=== PATIENT | female | born 1960 | race Caucasian/White ===

== ENCOUNTER 2023-10-19 19:18 | Emergency (ER) | payer OTHER ==
[2023-10-19 20:26] LABS: Absolute Lymphocytes (CBC) 1.7 K/uL (0.7-4.9); Absolute Monocytes 1.3 K/uL (0.1-1.3); Absolute Neutrophil 9.7 K/uL (1.8-8.0); Basophils % 0.4 % (0-1.3); Eosinophils % 0.1 % (0-4.4); Hematocrit 42.5 % (36.0-45.0); Hemoglobin 14.5 g/dL (12.0-15.0); Lymphocytes % 13.4 % (15.3-44.8); MCH 27.5 pg (27.0-35.0); MPV 7.7 fL (7.6-11.3); Monocytes % 9.9 % (3.3-12.3); Neutrophils % 76.2 % (41.7-73.7); Platelets 191 thou/uL (152-406); RBC Red Blood Cell Count 5.25 M/uL (3.86-4.86); Red Cell Distribution Width 14.9 % (12.1-15.2)
[2023-10-19 20:28] LABS: Specific Gravity 1.005 (1.005-1.030); Sqamous Epithelial <5 /HPF (None Seen); Urine Bacteria <20 /HPF (<20); Urine Bilirubin NEGATIVE (Negative); Urine Blood Trace (Negative); Urine Clarity Turbid (Clear); Urine Color Colorless (Yellow); Urine Culture Reflex Order REFLEXED; Urine Glucose NEGATIVE (Negative); Urine Ketones NEGATIVE (Negative); Urine Microscopic Reflex YN ORDER UMIC; Urine Mucus Slight /HPF (None Seen); Urine Nitrite NEGATIVE (Negative); Urine Protein NEGATIVE (Negative); Urine RBC <5 /HPF (None Seen); Urine Urobilinogen Normal (Normal); Urine WBC 20-50 /HPF (<5)
[2023-10-19] MEDS ORDERED: KETOROLAC 30 MG/ML INJ ONE (20:29)
[2023-10-19] MEDS ORDERED: NA CHLORIDE 0.9% 1,000 ML ONE (20:29)
[2023-10-19 20:41] LABS: Albumin 3.8 g/dL (3.4-5.0); Albumin/Globulin Ratio 0.9 (1.1-1.8); Anion Gap 10.6 mEq/L (5.0-15.0); Bilirubin Total 1.6 mg/dL (0.2-1.0); Globulin 4.3 g/dL (2.3-3.5); Potassium 3.6 mEq/L (3.5-5.1); Protein, Total 8.1 g/dL (6.4-8.2)
--- NOTE | 2023-10-19 21:54 | RAD REPORT ---
EXAM DESCRIPTION: CTAbdomen Pelvis W Contrast - 10/19/2023 9:14 pm CLINICAL HISTORY: Abdominal pain. ABD PAIN COMPARISON: <Comparisons> TECHNIQUE: Biphasic CT imaging of the abdomen and pelvis was performed with 100 ml non-ionic IV cont rast. All CT scans are performed using dose optimization technique as appropriate and may include automated exposure control or mA/KV adjustment according to patient size. FINDINGS: The lung bases are clear.Cholecystectomy clips. The liver, spleen, pancreas, adrenal glands and kidneys are within normal limits. No bowel obstruction, free air, free fluid or abscess. There is an 8 cm area of sigmoid colon with mo derate surrounding inflammation compatible with acute diverticulitis. No abscess is seen. The appendi x is normal. No evidence of significant lymphadenopathy. No suspicious bony findings. IMPRESSION: Moderate sigmoid colon inflammation compatible with acute diverticulitis. No abscess see n.
[2023-10-19] MEDS ORDERED: CEFTRIAXONE 1000 MG/VIAL ONE (22:44)
[2023-10-19] MEDS ORDERED: METRONIDAZOLE 500mg IVPB 500 MG/100 ML BAG IV ONE (22:45)
--- NOTE | 2023-10-19 23:03 | EDPHYS ---
Physician Documentation [facility] Name: Caitlyn Edwards Age: 62 yrs Sex: Female : 1960 Arrival Date: 10/19/2023 Time: 19:18 Bed 19 Private MD: ED Physician Luther Robledo HPI: 10/18 20:00 This 62 yrs old Female presents to ER via Ambulatory with complaints of Fever, cp Abdominal Pain. 20:00 The patient reports fever, that was measured at 101 degrees Fahrenheit. Onset: The cp symptoms/episode began/occurred today. Associated signs and symptoms: Pertinent positives: abdominal pain. 20:00 The patient has experienced similar episodes in the past, a few times, today's symptoms cp are similar, to when the patient was apparently diagnosed with diverticulitis. Historical: - Allergies: 19:55 Sulfa (Sulfonamide Antibiotics); jw7 19:55 PENICILLINS; jw7 19:55 Azithromycin; jw7 - Home Meds: 19:55 None [Active]; jw7 - PSHx: 19:55 section; jw7 - Immunization history:: Adult Immunizations up to date. - Infectious Disease History:: Denies. - Social history:: Smoking status: Patient denies any tobacco usage or history of. Patient/guardian denies using alcohol, street drugs, IV drugs. ROS: 20:05 Constitutional: Positive for fever, Negative for body aches, chills, poor PO intake, cp 20:05 Eyes: Negative for injury, pain, redness, and discharge, cp 20:05 ENT: Negative for drainage from ear(s), ear pain, sore throat, difficulty swallowing, difficulty handling secretions, 20:05 Cardiovascular: Negative for chest pain, 20:05 Respiratory: Negative for cough, shortness of breath, wheezing, 20:05 Abdomen/GI: Positive for abdominal pain, 20:05 Back: Negative for pain at rest, pain with movement, 20:05 Neuro: Negative for altered mental status, dizziness, headache, syncope, weakness, 20:05 All other systems are negative, Exam: 20:45 Head/Face: Normocephalic, atraumatic. cp 20:45 Constitutional: The patient appears in no acute distress, alert, awake, non-toxic, well developed, well nourished, 20:45 Eyes: Periorbital structures: appear normal, Conjunctiva: normal, no exudate, no injection, Sclera: no appreciated abnormality, Lids and lashes: appear normal, bilaterally, 20:45 ENT: External ear(s): are unremarkable, Nose: is normal, Mouth: Lips: moist, Oral mucosa: pink and intact, moist, Posterior pharynx: Airway: no evidence of obstruction, patent, 20:45 Chest/axilla: Inspection: normal, 20:45 Cardiovascular: Rate: normal, Rhythm: regular, 20:45 Respiratory: the patient does not display signs of respiratory distress, Respirations: normal, no use of accessory muscles, no retractions, labored breathing, is not present, Breath sounds: are clear throughout, no decreased breath sounds, no stridor, no wheezing, 20:45 Abdomen/GI: Inspection: abdomen appears normal, Bowel sounds: active, all quadrants, cp Palpation: soft, in all quadrants, mild abdominal tenderness, in the right lower quadrant and left lower quadrant, rebound tenderness, is not appreciated, involuntary guarding, is not appreciated, 20:45 Back: CVA tenderness, is absent, Vital Signs: 19:53 BP 145 / 83; Pulse 92; Resp 16 S; Temp 98.6(TE); Pulse Ox 97% on R/A; Weight 80.29 kg; jw7 Height 5 ft. 7 in. ; Pain 0/10; 21:42 BP 153 / 91; Pulse 78; Pulse Ox 96% on R/A; Pain 0/10; tm6 22:57 BP 106 / 82; Pulse 71; Pulse Ox 96% on R/A; Pain 0/10; tm6 23:32 BP 124 / 77; Pulse 74; Resp 18; Temp 98.5(TE); Pulse Ox 97% on R/A; Pain 0/10; tm6 19:53 Body Mass Index 27.72 (80.29 kg, 170.18 cm) jw7 19:53 Pain Scale: Adult jw7 21:42 Pain Scale: Adult tm6 22:57 Pain Scale: Adult tm6 23:32 Pain Scale: Adult tm6 MDM: 20:01 Patient medically screened. cp 21:00 Differential diagnosis: UTI, diverticulitis, colitis, pyelonephritis, sepsis. cp 23:02 Data reviewed: vital signs, nurses notes, lab test result(s), radiologic studies, CT cp scan. 23:02 I considered the following discharge prescriptions or medication management in the emergency department Medications were administered in the Emergency Department. See MAR. Counseling: I had a detailed discussion with the patient and/or guardian regarding the historical points, exam findings, and any diagnostic results supporting the discharge/admit diagnosis, lab results, radiology results, the need for outpatient follow up, a family practitioner, to return to the emergency department if symptoms worsen or persist or if there are any questions or concerns that arise at home. Response to treatment: the patient's symptoms have markedly improved after treatment, and as a result, I will discharge patient. 10/18 19:53 Order name: CBC with Diff; Complete Time: 21:38 10/18 21:38 Interpretation: Normal except: WBC 12.80; RBC 5.25; ART% 76.2; LYM% 13.4; NEUT A 9.7. 10/18 19:53 Order name: CMP; Complete Time: 21:38 10/18 21:38 Interpretation: Normal except: GLUC 118; GFR 89; AST 11; BILIT 1.6; GLOB 4.3; A/G 0.9. 10/18 19:53 Order name: Lipase; Complete Time: 21:38 10/18 19:53 Order name: Urinalysis w/ reflexes; Complete Time: 21:38 10/18 21:38 Interpretation: Normal except: UCLA Turbid; UBLD Trace; UESTR 500; UWBC 20-50. 10/18 20:01 Order name: Lactate w/ 2H reflex if indic.; Complete Time: 21:38 10/18 20:40 Order name: Urine Culture EDMD 10/18 19:53 Order name: CT Abd/Pelvis - IV Contrast Only; Complete Time: 22:20 10/18 22:20 Interpretation: Report reviewed. 10/18 19:53 Order name: IV Saline Lock; Complete Time: 20:17 10/18 19:53 Order name: Labs collected and sent; Complete Time: 20:17 Administered Medications: 20:36 Drug: Ketorolac IVP 15 mg IVP once Route: IVP; Site: right antecubital; tm6 20:36 Drug: NS 0.9% IV 1000 ml IV at 500 ml/hr Per protocol Route: IV; Rate: 500 ml/hr; Site: tm6 right antecubital; 23:28 Follow up: IV Status: Completed infusion; IV Intake: 1000ml tm6 22:52 Drug: Rocephin IV 1 grams IV at calculated rate once; Given slow IV push per pharmacy tm6 instructions Route: IV; Rate: calculated rate; Site: right antecubital; 22:52 Drug: metroNIDAZOLE IVPB 500 mg 100 ml IVPB once over 30 mins Volume: 100 ml; Route: tm6 IVPB; Infused Over: 30 mins; Site: right antecubital; Disposition Summary: 10/19/23 23:03 Discharge Ordered Notes: Location: Home cp Problem: new cp Symptoms: have improved cp Condition: Stable cp Diagnosis - Diverticulitis of large intestine without perforation or abscess without bleeding cp Followup: cp - With: Private Physician - When: 2 - 3 days - Reason: Recheck today's complaints Discharge Instructions: - Discharge Summary Sheet cp - High-Fiber Eating Plan cp - Diverticulitis cp Forms: - Medication Reconciliation Form cp - Antibiotic Education cp - Prescription Opioid Use cp - Patient Portal Instructions cp - Leadership Thank You Letter cp Prescriptions: - Zofran 4 mg Oral Tablet - take 1 tablet ORAL route every 12 hours As needed; 20 tablet; Refills: 0, cp Product Selection Permitted - Cipro 500 mg Oral tablet - take 1 tablet ORAL route every 12 hours for 10 days; 20 tablet; Refills: 0, cp Product Selection Permitted - Metronidazole 500 mg Oral Tablet - take 1 tablet ORAL route every 8 hours; 30 tablet; Refills: 0, Product cp Selection Permitted - dicyclomine 20 mg Oral tablet - take 1 tablet ORAL route 4 times per day; 30 tablet; Refills: 0, Product cp Selection Permitted Addendum: 10/21/2023 05:46 I was immediately available for consultation during this patient's visit. I did not e c2 personally see the patient or discuss the patient with the JOSLYN. . Signatures: Dispatcher [employer] EDMS Ethan Soliman PA PA cp Waits, Jodi RN RN jw7 Luther Robledo MD MD ec2 Drew Valenzuela RN RN tm6 Corrections: (The following items were deleted from the chart) 10/18 19:54 19:54 Abdomen Pelvis W Con+CT.RAD.BRZ ordered. EDMS EDMS
--- NOTE | 2023-10-19 23:03 | ER ---
Nurse's Notes [facility] Name: Caitlyn Edwards Age: 62 yrs Sex: Female : 1960 Arrival Date: 10/19/2023 Time: 19:18 Bed 19 Private MD: Diagnosis: Diverticulitis of large intestine without perforation or abscess without bleeding Presentation: 10/18 19:53 Chief complaint: Patient states: I've been having some mild abdominal cramping for jw7 about a week and then today it got really severe and feels like a Diverticulitis Flare-Up. I've also been having some nausea. Coronavirus screen: At this time, the client does not indicate any symptoms associated with coronavirus-19. Ebola Screen: No symptoms or risks identified at this time. Initial Sepsis Screen: Does the patient meet any 2 criteria? No. Patient's initial sepsis screen is negative. Does the patient have a suspected source of infection? No. Patient's initial sepsis screen is negative. Risk Assessment: Do you want to hurt yourself or someone else? Patient reports no desire to harm self or others. Onset of symptoms was October 19, 2023. 19:53 Method Of Arrival: Ambulatory [facility] 19:53 Acuity: ARMANDO 3 jw7 Triage Assessment: 19:55 General: Appears in no apparent distress. comfortable, Behavior is calm, cooperative, jw7 appropriate for age. Pain: Denies pain. EENT: No deficits noted. No signs and/or symptoms were reported regarding the EENT system. Neuro: Level of Consciousness is awake, alert, obeys commands, Oriented to person, place, time, situation. Cardiovascular: Heart tones S1 S2 present Capillary refill < 3 seconds Clubbing of nail beds is absent JVD is absent Patient's skin is warm and dry. Respiratory: Airway is patent Trachea midline Respiratory effort is even, unlabored, Respiratory pattern is regular, symmetrical. GI: Abdomen is round non-distended, Bowel sounds present X 4 quads. Abd is soft and non tender X 4 quads. : No deficits noted. No signs and/or symptoms were reported regarding the genitourinary system. Derm: Skin is intact, is healthy with good turgor, Skin is dry, Skin is normal, Skin temperature is warm. Musculoskeletal: Circulation, motion, and sensation intact. Range of motion: intact in all extremities. Historical: - Allergies: 19:55 Sulfa (Sulfonamide Antibiotics); jw7 19:55 PENICILLINS; jw7 19:55 Azithromycin; jw7 - Home Meds: 19:55 None [Active]; jw7 - PSHx: 19:55 section; jw7 - Immunization history:: Adult Immunizations up to date. - Infectious Disease History:: Denies. - Social history:: Smoking status: Patient denies any tobacco usage or history of. Patient/guardian denies using alcohol, street drugs, IV drugs. Screenin:25 [facility] ED Fall Risk Assessment (Adult) History of falling in the last 3 months, tm6 including since admission No falls in past 3 months (0 pts) Confusion or Disorientation No (0 pts) Intoxicated or Sedated No (0 pts) Impaired Gait No (0 pts) Mobility Assist Device Used No (0 pt) Altered Elimination No (0 pt) Score/Fall Risk Level 0 - 2 = Low Risk Oriented to surroundings, Maintained a safe environment, Educated pt \T\ family on fall prevention, incl call for assistance when getting out of bed. Abuse screen: Denies threats or abuse. Denies injuries from another. Nutritional screening: No deficits noted. Tuberculosis screening: No symptoms or risk factors identified. Assessment: 20:25 General: Appears in no apparent distress. Behavior is calm, cooperative. Pain: tm6 Complains of pain in abdomen Pain currently is 1 out of 10 on a pain scale. Quality of pain is described as crampy. Neuro: Level of Consciousness is awake, alert, obeys commands, Oriented to person, place, time, situation. Cardiovascular: Patient's skin is warm and dry. Respiratory: Airway is patent Respiratory effort is even, unlabored, Respiratory pattern is regular, symmetrical. GI: Abdomen is flat, non-distended, Bowel sounds present X 4 quads. Abd is soft and non tender X 4 quads. Reports lower abdominal pain, nausea. : No signs and/or symptoms were reported regarding the genitourinary system. EENT: No signs and/or symptoms were reported regarding the EENT system. Derm: No signs and/or symptoms reported regarding the dermatologic system. Musculoskeletal: No signs and/or symptoms reported regarding the musculoskeletal system. 21:43 Reassessment: Patient appears in no apparent distress at this time. Patient and/or tm6 family updated on plan of care and expected duration. Pain level reassessed. Patient is alert, oriented x 3, equal unlabored respirations, skin warm/dry/pink. 22:57 Reassessment: Patient appears in no apparent distress at this time. Patient and/or tm6 family updated on plan of care and expected duration. Pain level reassessed. Patient is alert, oriented x 3, equal unlabored respirations, skin warm/dry/pink. 23:28 Reassessment: Patient appears in no apparent distress at this time. Patient and/or tm6 family updated on plan of care and expected duration. Pain level reassessed. Patient is alert, oriented x 3, equal unlabored respirations, skin warm/dry/pink. Vital Signs: 19:53 BP 145 / 83; Pulse 92; Resp 16 S; Temp 98.6(TE); Pulse Ox 97% on R/A; Weight 80.29 kg; jw7 Height 5 ft. 7 in. ; Pain 0/10; 21:42 BP 153 / 91; Pulse 78; Pulse Ox 96% on R/A; Pain 0/10; tm6 22:57 BP 106 / 82; Pulse 71; Pulse Ox 96% on R/A; Pain 0/10; tm6 23:32 BP 124 / 77; Pulse 74; Resp 18; Temp 98.5(TE); Pulse Ox 97% on R/A; Pain 0/10; tm6 19:53 Body Mass Index 27.72 (80.29 kg, 170.18 cm) jw7 19:53 Pain Scale: Adult jw7 21:42 Pain Scale: Adult tm6 22:57 Pain Scale: Adult tm6 23:32 Pain Scale: Adult tm6 ED Course: 19:19 Patient arrived in ED. mr 19:32 Ethan Soliman PA is PHCP. cp 19:32 Luther Robledo MD is Attending Physician. cp 19:55 Triage completed. 7 19:55 Arm band placed on right wrist. jw7 20:17 CBC with Diff Sent. nj1 20:17 CMP Sent. nj1 20:17 Lipase Sent. nj1 20:17 Urinalysis w/ reflexes Sent. nj1 20:17 Lactate w/ 2H reflex if indic. Sent. nj1 20:17 Inserted saline lock: 22 gauge in right antecubital area, using aseptic technique. nj1 20:25 Patient has correct armband on for positive identification. Bed in low position. Call tm6 light in reach. Side rails up X 1. Provided Education on: use of call jennings. Client placed on continuous cardiac and pulse oximetry monitoring. NIBP monitoring applied. Pulse ox on. NIBP on. Door closed. Noise minimized. Warm blanket given. Pillow given. 20:36 Drew Valenzuela, RN is Primary Nurse. tm6 21:15 CT Abd/Pelvis - IV Contrast Only In Process Unspecified. EDMS 23:28 No provider procedures requiring assistance completed. IV discontinued, intact, tm6 bleeding controlled, No redness/swelling at site. Pressure dressing applied. Administered Medications: 20:36 Drug: Ketorolac IVP 15 mg IVP once Route: IVP; Site: right antecubital; tm6 20:36 Drug: NS 0.9% IV 1000 ml IV at 500 ml/hr Per protocol Route: IV; Rate: 500 ml/hr; Site: tm6 right antecubital; 23:28 Follow up: IV Status: Completed infusion; IV Intake: 1000ml tm6 22:52 Drug: Rocephin IV 1 grams IV at calculated rate once; Given slow IV push per pharmacy tm6 instructions Route: IV; Rate: calculated rate; Site: right antecubital; 22:52 Drug: metroNIDAZOLE IVPB 500 mg 100 ml IVPB once over 30 mins Volume: 100 ml; Route: tm6 IVPB; Infused Over: 30 mins; Site: right antecubital; Medication: 20:25 VIS not applicable for this client. tm6 Intake: 23:28 IV: 1000ml; Total: 1000ml. tm6 Outcome: 23:03 Discharge ordered by . baron 23:28 Discharged to home ambulatory, with family, tm6 23:28 Condition: stable 23:28 Discharge instructions given to patient, family, Instructed on discharge instructions, follow up and referral plans. medication usage, Demonstrated understanding of instructions, follow-up care, medications, Prescriptions given X 4, 23:33 Patient left the ED. tm6 Signatures: Dispatcher [employer] EDOK Kavitha Lafleur, Reg Reg mr Ethan Soliman, PA PA Leena Mckeon RN RN jw7 Lakshmi Garcias RN RN nj1 Bianca, Tawney, RN RN tm6
[2023-10-19 23:54] VITALS: BP 124/77; TEMP 98.5; O2SAT 97
== END 2023-10-19 23:33 | disposition home or self-care (01) ==
LOC: ER 19:18
DX: K57.32 Diverticulitis of large intestine without perforation or abscess without bleeding (principal); Z88.0 Allergy status to penicillin; Z88.2 Allergy status to sulfonamides; Z88.8 Allergy status to other drugs, medicaments and biological substances
CPT/HCPCS: 96361; 87088; 85025; 81001; 87086; 36415; 83605; 83690; 80053; 74177; 96375; 96374; 99284; Q9967; J7030; J0696